=== PATIENT | female | born 1960 | race Caucasian/White ===

== ENCOUNTER 2016-12-18 07:30 | Emergency (ER) | payer OTHER ==
[~2016-12-18] VITALS: Ht 162.6 cm; Wt 113.4 kg
--- NOTE | 2016-12-18 07:38 | PHYS DOC ---
Adult General Chief Complaint Chief Complaint: URINARY RETENTION HPI HPI Patient is a 56 year old female who presents with hematuria and lower abdominal pain since 1:30 this morning. She states when she got up this morning she has not been able to urinate so she drank approximately 1 gallon of water. She states she noticed blood in her urine when she was able to urinate just a little bit. She also had some discomfort in her low pelvic area at that time also. She denies any constipation diarrhea and states when she went to bed last night she was fine. She states she's had UTIs before but nothing this painful. She has had a hysterectomy in the past. She states that she felt like she was getting a urinary tract infection approximately 2 days ago. Review of Systems Review of Systems Constitutional: Denies fever or chills [] Eyes: Denies change in visual acuity, redness, or eye pain [] HENT: Denies nasal congestion or sore throat [] Respiratory: Denies cough or shortness of breath [] Cardiovascular: No additional information not addressed in HPI [] GI: Denies abdominal pain, nausea, vomiting, bloody stools or diarrhea [] : Denies dysuria or hematuria [] Musculoskeletal: Denies back pain or joint pain [] Integument: Denies rash or skin lesions [] Neurologic: Denies headache, focal weakness or sensory changes [] Endocrine: Denies polyuria or polydipsia [] Current Medications Current Medications Current Medications Medications (Trade) Dose Ordered Sig/Amos Start Time Stop Time Status Last Admin Dose Admin Ceftriaxone Sodium 50 ml @ 100 mls/hr 1X ONCE 12/18/16 09:00 12/18/16 09:29 DC 12/18/16 09:20 100 MLS/HR Hydromorphone HCl (Dilaudid) 0.5 mg PRN Q15MIN PRN 12/18/16 07:45 12/19/16 07:44 12/18/16 09:10 0.5 MG Sodium Chloride 1,000 ml @ 1,000 mls/hr Q1H 12/18/16 07:44 12/18/16 07:50 DC Allergies Allergies Allergies Coded Allergies Type Severity Reaction Last Updated Verified Penicillins Allergy Intermediate 12/18/16 Yes Sulfa (Sulfonamide Antibiotics) Allergy Intermediate 12/18/16 Yes morphine Allergy Intermediate dilaudid is ok 12/18/16 Yes ondansetron Allergy Intermediate 12/18/16 Yes Physical Exam Physical Exam Constitutional: Well developed, well nourished, no acute distress, non-toxic appearance. [] HENT: Normocephalic, atraumatic, bilateral external ears normal, oropharynx moist, no oral exudates, nose normal. [] Eyes: PERRLA, EOMI, conjunctiva normal, no discharge. [] Neck: Normal range of motion, no tenderness, supple, no stridor. [] Cardiovascular:Heart rate regular rhythm, no murmur [] Lungs & Thorax: Bilateral breath sounds clear to auscultation [] Abdomen: Bowel sounds normal, soft, mild tenderness to palpation in the suprapubic area, no rebound or guarding, no masses, no pulsatile masses. [] Skin: Warm, dry, no erythema, no rash. [] Back: No tenderness, no CVA tenderness. [] Extremities: No tenderness, no cyanosis, no clubbing, ROM intact, no edema. [] Neurologic: Alert and oriented X 3, normal motor function, normal sensory function, no focal deficits noted. [] Psychologic: Affect normal, judgement normal, mood normal. [] Current Patient Data Vital Signs Vital Signs Date Time Temp Pulse Resp B/P (MAP) Pulse Ox O2 Delivery O2 Flow Rate FiO2 12/18/16 09:10 18 97 Room Air 12/18/16 07:40 97.7 71 171/81 (111) 97.7 Lab Values Laboratory Tests Test 12/18/16 07:35 12/18/16 07:50 Urine Collection Type Unknown Urine Color Red Urine Clarity Turbid Urine pH 5.0 Urine Specific [place] 1.025 Urine Protein >=300 mg/dL (NEG-TRACE) Urine Glucose (UA) 100 mg/dL (NEG) Urine Ketones (Stick) 40 mg/dL (NEG) Urine Blood Large (NEG) Urine Nitrite Positive (NEG) Urine Bilirubin Large (NEG) Urine Urobilinogen Dipstick 4.0 mg/dL (0.2 mg/dL) Urine Leukocyte Esterase Large (NEG) Urine RBC Tntc /HPF (0-2) Urine WBC 1-4 /HPF (0-4) Urine Squamous Epithelial Cells Occ /LPF Urine Bacteria Few /HPF (0-FEW) Urine Opiates Screen Neg (NEG) Urine Methadone Screen Neg (NEG) Urine Barbiturates Neg (NEG) Urine Phencyclidine Screen Neg (NEG) Urine Amphetamine/Methamphetamine Neg (NEG) Urine Benzodiazepines Screen Neg (NEG) Urine Cocaine Screen Neg (NEG) Urine Cannabinoids Screen Neg (NEG) Urine Ethyl Alcohol Neg (NEG) White Blood Count 12.5 x10^3/uL (4.0-11.0) H Red Blood Count 4.06 x10^6/uL (3.50-5.40) Hemoglobin 11.9 g/dL (12.0-15.5) L Hematocrit 36.3 % (36.0-47.0) Mean Corpuscular Volume 89 fL (79-100) Mean Corpuscular Hemoglobin 29 pg (25-35) Mean Corpuscular Hemoglobin Concent 33 g/dL (31-37) Red Cell Distribution Width 12.8 % (11.5-14.5) Platelet Count 378 x10^3/uL (140-400) Neutrophils (%) (Auto) 76 % (31-73) H Lymphocytes (%) (Auto) 17 % (24-48) L Monocytes (%) (Auto) 5 % (0-9) Eosinophils (%) (Auto) 1 % (0-3) Basophils (%) (Auto) 1 % (0-3) Neutrophils # (Auto) 9.4 x10^3uL (1.8-7.7) H Lymphocytes # (Auto) 2.2 x10^3/uL (1.0-4.8) Monocytes # (Auto) 0.6 x10^3/uL (0.0-1.1) Eosinophils # (Auto) 0.1 x10^3/uL (0.0-0.7) Basophils # (Auto) 0.1 x10^3/uL (0.0-0.2) Prothrombin Time 11.7 SEC (11.7-14.0) Prothrombin Time INR 0.9 (0.8-1.1) PTT 26 SEC (24-38) Sodium Level 137 mmol/L (136-145) Potassium Level 4.0 mmol/L (3.5-5.1) Chloride Level 99 mmol/L (98-107) Carbon Dioxide Level 32 mmol/L (21-32) Anion Gap 6 (6-14) Blood Urea Nitrogen 16 mg/dL (7-20) Creatinine 0.7 mg/dL (0.6-1.0) Estimated GFR (Cockcroft-Gault) 87.2 Glucose Level 99 mg/dL (70-99) Calcium Level 8.6 mg/dL (8.5-10.1) Total Bilirubin 0.3 mg/dL (0.2-1.0) Direct Bilirubin 0.1 mg/dL (0.0-0.2) Aspartate Amino Transferase (AST) 20 U/L (15-37) Alanine Aminotransferase (ALT) 30 U/L (14-59) Alkaline Phosphatase 91 U/L (46-116) Creatine Kinase 140 U/L (26-192) Creatine Kinase MB (Mass) 0.8 ng/mL (0.0-3.6) Creatine Kinase MB Relative Index 0.6 % (0-4) Total Protein 7.0 g/dL (6.4-8.2) Albumin 3.8 g/dL (3.4-5.0) Lipase 207 U/L (73-393) Laboratory Tests 12/18/16 07:50 Laboratory Tests 12/18/16 07:50 EKG EKG [] Radiology/Procedures Radiology/Procedures [facility] [address] [place], [place] [id number] IMAGING REPORT Signed PATIENT: IWONA WOOD ACCOUNT: [id number] : 1960 LOCATION: ER AGE: 56 SEX: F EXAM STATUS: REG ER ORD. PHYSICIAN: MALISSA FERGUSON MD REASON: suprapubic discomfort, urinary retention, hematuria. PROCEDURE: CT ABDOMEN PELVIS WO CONTRAST CT abdomen and pelvis without contrast 12/18/2016 Clinical indication: Suprapubic discomfort. Urinary retention. Hematuria. Comparison: None. Technique: CT helical acquisition of the abdomen and pelvis was obtained without contrast. Coronal and sagittal reformations were obtained. PQRS Compliance Statement: One or more of the following individualized dose reduction techniques were utilized for this examination: 1. Automated exposure control 2. Adjustment of the mA and/or kV according to patient size 3. Use of iterative reconstruction technique Findings: Abdomen and pelvis: Heart size and lung bases are within normal limits. Evaluation of the solid abdominopelvic viscera, lymphadenopathy and vasculature are limited in the absence of intravenous contrast. Unenhanced contours of the liver, spleen, gallbladder, adrenal glands and pancreas are within normal limits. There is a 2 mm nonobstructing calculus in the inferior pole of the right kidney. No hydroureteronephrosis or ureteral lithiasis. No abnormal perinephric fluid collection. Abdominal aorta is normal in caliber with minimal calcified atheromatous disease. No bowel obstruction. Appendix is normal in appearance. There are a few scattered distal colonic diverticula. No definite abdominal lymphadenopathy. No abdominal free fluid. Urinary bladder is decompressed, however there is mild pericystic stranding. Prior hysterectomy. There is a mildly enlarged right external iliac lymph node measuring 11 mm. No pelvic free fluid. No destructive osseous lesions. Impression: 1. 2 mm nonobstructive right renal calculus. 2. Nondistended urinary bladder with pericystic stranding concerning for cystitis. Correlation with urinalysis is recommended. 3. Mildly enlarged right external iliac lymph node, indeterminate. DICTATED and SIGNED BY: KHRIS HERNANDEZ MD DATE: 12/18/16 0946 CC: MALISSA FERGUSON MD; SARAHI GERBER MD ~ Impressions: UTI Course & Med Decision Making Course & Med Decision Making Pertinent Labs and Imaging studies reviewed. (See chart for details) Labs are nonacute, we placed a catheter briefly and only a few mL's were produced. Bladder scanner also confirmed this. CT scan shows cystitis, patient received Rocephin and is being discharged with nitrofurantoin twice a day for 7 days. Return precautions given. She is agreeable and and being discharged in stable condition this time. Dragchristina Disclaimer Van Disclaimer This electronic medical record was generated, in whole or in part, using a voice recognition dictation system. Departure Departure Impression: Primary Impression: UTI (urinary tract infection) Disposition: 01 HOME, SELF-CARE Condition: STABLE Referrals: SARAHI GERBER MD (PCP) Patient Instructions: Urinary Tract Infection Additional Instructions: You have a bladder infection when he take antibiotics for the next 7 days. You can take Azo which is also call Pyridium [id number] for your pain from your bladder infection. You develop fevers, inability urinate, uncontrolled nausea vomiting or other concerns please return back to emergency apart. He should follow up with primary care physician within the next 3-5 days. Scripts Nitrofurantoin Macrocrystal (NITROFURANTOIN) 100 Mg Capsule 1 CAP PO BID, #14 CAP Prov: MALISSA FERGUSON MD 12/18/16 Problem Qualifiers Primary Impression: UTI (urinary tract infection) Urinary tract infection type: acute cystitis Hematuria presence: with hematuria Qualified Codes: N30.01 - Acute cystitis with hematuria MALISSA FERGUSON MD Dec 18, 2016 07:38
[2016-12-18] MEDS ORDERED: IV NORMAL SALINE 1000ML BAG 1,000 ML IV SCH (07:44)
[2016-12-18 07:59] LABS: BILIRUBIN,URINE LARGE (NEG); GLUCOSE,URINE 100 mg/dL (NEG); NITRITE,URINE POSITIVE (NEG); PROTEIN,URINE >=300 mg/dL (NEG-TRACE)
[2016-12-18 07:59] LABS: BASO # 0.1 x10^3/uL (0.0-0.2); BASO % 1 % (0-3); EOS % 1 % (0-3); HEMATOCRIT 36.3 % (36.0-47.0); HEMOGLOBIN 11.9 g/dL (12.0-15.5); LYMPH # 2.2 x10^3/uL (1.0-4.8); LYMPH % 17 % (24-48); MEAN CORPUSCULAR HEMOGLOBIN 29 pg (25-35); MEAN CORPUSCULAR HGB CONC 33 g/dL (31-37); MEAN CORPUSCULAR VOLUME 89 fL (79-100); MONO % 5 % (0-9); NEUT % 76 % (31-73); PLATELET COUNT 378 x10^3/uL (140-400); RED BLOOD COUNT 4.06 x10^6/uL (3.50-5.40); RED CELL DISTRIBUTION WIDTH 12.8 % (11.5-14.5); WHITE BLOOD COUNT 12.5 x10^3/uL (4.0-11.0)
[2016-12-18] MEDS: HYDROmorphone 2 MG/ML VIAL IV/SQ PRN ×2 (08:05→09:10)
[2016-12-18 08:11] LABS: CALCIUM 8.6 mg/dL (8.5-10.1); CREATININE 0.7 mg/dL (0.6-1.0); GFR 87.2; INR 0.9 (0.8-1.1); PROTHROMBIN TIME PATIENT 11.7 SEC (11.7-14.0)
[2016-12-18 08:14] LABS: BARBITURATES NEG (NEG); BENZODIAZEPINES NEG (NEG); CANNABINOIDS NEG (NEG); COCAINE NEG (NEG); METHADONE NEG (NEG); OPIATES NEG (NEG); PHENCYCLIDINE NEG (NEG)
[2016-12-18 08:16] LABS: ALBUMIN 3.8 g/dL (3.4-5.0); DIRECT BILIRUBIN 0.1 mg/dL (0.0-0.2); TOTAL BILIRUBIN 0.3 mg/dL (0.2-1.0)
[2016-12-18 08:16] LABS: BACTERIA,URINE FEW /HPF (0-FEW); RBC,URINE TNTC /HPF (0-2); SQUAMOUS EPITHELIAL CELL,UR OCC /LPF
[2016-12-18 08:23] LABS: CKMB MASS 0.8 ng/mL (0.0-3.6)
--- NOTE | 2016-12-18 10:02 | RAD ---
CT abdomen and pelvis without contrast 12/18/2016 Clinical indication: Suprapubic discomfort. Urinary retention. Hematuria. Comparison: None. Technique: CT helical acquisition of the abdomen and pelvis was obtained without contrast. Coronal and sagittal reformations were obtained. PQRS Compliance Statement: One or more of the following individualized dose reduction techniques were utilized for this examination: 1. Automated exposure control 2. Adjustment of the mA and/or kV according to patient size 3. Use of iterative reconstruction technique Findings: Abdomen and pelvis: Heart size and lung bases are within normal limits. Evaluation of the solid abdominopelvic viscera, lymphadenopathy and vasculature are limited in the absence of intravenous contrast. Unenhanced contours of the liver, spleen, gallbladder, adrenal glands and pancreas are within normal limits. There is a 2 mm nonobstructing calculus in the inferior pole of the right kidney. No hydroureteronephrosis or ureteral lithiasis. No abnormal perinephric fluid collection. Abdominal aorta is normal in caliber with minimal calcified atheromatous disease. No bowel obstruction. Appendix is normal in appearance. There are a few scattered distal colonic diverticula. No definite abdominal lymphadenopathy. No abdominal free fluid. Urinary bladder is decompressed, however there is mild pericystic stranding. Prior hysterectomy. There is a mildly enlarged right external iliac lymph node measuring 11 mm. No pelvic free fluid. No destructive osseous lesions. Impression: 1. 2 mm nonobstructive right renal calculus. 2. Nondistended urinary bladder with pericystic stranding concerning for cystitis. Correlation with urinalysis is recommended. 3. Mildly enlarged right external iliac lymph node, indeterminate.
[2016-12-18] MEDS ORDERED: NITR100C PO (10:45)
[2016-12-18 11:00] VITALS: BP 122/68
== END 2016-12-18 11:12 | disposition home or self-care (01) ==
LOC: ER 07:30
DX: N39.0 Urinary tract infection, site not specified (principal); Z90.710 Acquired absence of both cervix and uterus; Z88.0 Allergy status to penicillin; Z88.2 Allergy status to sulfonamides; Z88.5 Allergy status to narcotic agent; Z88.8 Allergy status to other drugs, medicaments and biological substances
CPT/HCPCS: 36415; 51702; 74176; 80048; 80076; 80307; 81001; 82553; 83690; 85027; 85610; 85730; 87086; 96365; 96375; 96376; 99285; J0690; J1170; G0479